=== PATIENT | male | born 1990 | race African-American/Black ===

== ENCOUNTER → 2019-01-23 16:25 | Emergency (ER) | payer BC, MEDICAID, OTHER ==
[~2019-01-23 16:25] MED LIST: Cephalexin CAP* 500 MG PO ONE; Lidocaine 1% MPF ** 5 ML VIAL INJ ONE
--- NOTE | 2019-01-23 19:08 | ED ---
Laceration/Wound HPI - HPI Summary HPI Summary: 28-year-old male presents with left hand laceration. He states that he was cutting grass and finger got cut by a branch. He states that is pulled his finger back and got a laceration between his pinky and his ring finger of his left hand. He has full range motion of fingers. No numbness or tingling. Laceration is contaminated. Tetanus up-to-date. Has no medical conditions. - History of Current Complaint Stated Complaint: LT HAND LAC PER PT Time Seen by Provider: 01/23/19 17:38 Pain Intensity: 2 - Allergy/Home Medications Allergies/Adverse Reactions: Allergies Allergy/AdvReac Type Severity Reaction Status Date / Time No Known Allergies Allergy Verified 01/23/19 16:35 PMH/Surg Hx/FS Hx/Imm Hx Endocrine/Hematology History: Denies: Hx Anticoagulant Therapy Cardiovascular History: Denies: Hx Myocardial Infarction Infectious Disease History: No Infectious Disease History: Denies: Traveled Outside the [place] in Last 30 Days - Family History Known Family History: Positive: Non-Contributory - Social History Alcohol Use: None Substance Use Type: Reports: None Smoking Status (MU): Never Smoked Tobacco Review of Systems Negative: Fever Negative: Chest Pain Negative: Shortness Of Breath Positive: Other - left hand laceration All Other Systems Reviewed And Are Negative: Yes Physical Exam Triage Information Reviewed: Yes Vital Signs On Initial Exam: Initial Vitals Temp Pulse Resp BP Pulse Ox 100.0 F 79 16 131/81 97 01/23/19 16:32 01/23/19 16:32 01/23/19 16:32 01/23/19 16:32 01/23/19 16:32 Vital Signs Reviewed: Yes Appearance: Positive: Well-Appearing Skin: Positive: Warm, Dry, Other - 2cm by 1/2cm by 1/2cm laceration between 4-5 fingers of left hand Head/Face: Positive: Normal Head/Face Inspection Eyes: Positive: Normal, Conjunctiva Clear ENT: Positive: Pharynx normal Respiratory/Lung Sounds: Positive: Clear to Auscultation, Breath Sounds Present Cardiovascular: Positive: Normal, RRR Musculoskeletal: Positive: Strength/ROM Intact - left hand, Other - good pulses Neurological: Positive: Normal Psychiatric: Positive: Normal Procedures - Laceration/Wound Repair 1 Location: Other - left hand Description: Linear Length, Depth and Shape: 2cm by 1/2cm by 1/2cm laceration between 4-5 fingers of left hand Irrigated w/ Saline (ccs): 1,000 Laceration/Wound Explored: contaminated Closure: Single Layer Suture Type: Prolene Number of Sutures: 3 Sterile Dressing Applied?: Yes - xeroform, guaze, coband to lucille tape area Diagnostics - Vital Signs Vital Signs Temp Pulse Resp BP Pulse Ox 01/23/19 16:32 100.0 F 79 16 131/81 97 - Laboratory Lab Statement: Any lab studies that have been ordered have been reviewed, and results considered in the medical decision making process. Laceration Repair Course/Dx - Course Course Of Treatment: 28-year-old male presents with left hand laceration. He states that he was cutting grass and finger got cut by a branch. He states that is pulled his finger back and got a laceration between his pinky and his ring finger of his left hand. He has full range motion of fingers. No numbness or tingling. Laceration is contaminated. Tetanus up-to-date. Has no medical conditions. On exam has 2cm by 1/2cm by 1/2cm laceration between 4-5 fingers of left hand. Cleaned area extensively and place 3 sutures. lucille tapped the area. With how contaminated the wound was placed on Keflex. told return if develop fevers or redness. Patient understands agrees with plan. - Differential Dx Differental Diagnoses: Abrasion, Avulsion, Laceration - Clinical Impression Provider Diagnoses: Laceration of left hand Discharge - Sign-Out/Discharge Documenting (check all that apply): Patient Departure Patient Received Moderate/Deep Sedation with Procedure: No - Discharge Plan Condition: Good Disposition: HOME Prescriptions: Cephalexin CAP* [Keflex CAP*] 500 mg PO BID #10 cap Patient Education Materials: Care For Your Stitches (ED) Referrals: Andrea Moore MD [Primary Care Provider] - Additional Instructions: Take Keflex twice a day for 5 days change dressing once a day, keep lucille taped Take Tylenol or ibuprofen for pain every 6 hours Return to ED or primary for suture removal in 8-10 days Return to ED if develop signs of infection such as fever, spreading redness, or pus formation - Billing Disposition and Condition Condition: GOOD Disposition: Home
[2019-01-23 19:20] VITALS: BP 121/84
== END | disposition home or self-care (01) ==
LOC: ED 16:25
DX: S61.412A Laceration without foreign body of left hand, initial encounter (principal); W22.8XXA Striking against or struck by other objects, initial encounter; Y93.H2 Activity, gardening and landscaping; Y92.9 Unspecified place or not applicable
CPT/HCPCS: 12002; 96372; 99282; A9270-GY